=== PATIENT | male | born 1985 | race Two or more races ===

== ENCOUNTER 2024-12-03 19:22 | Emergency (ER) | payer BC, SELFPAY ==
[2024-12-03 19:23] VITALS: BMI 40.1
--- NOTE | 2024-12-03 20:12 | PD.EDRME ---
Rapid Medical Screening Exam RME Arrival date/time: 12/03/24 19:22 Chief Complaint: Shortness of Breath/Dyspnea Time Seen by Provider: 12/03/24 19:24 Vital signs: Vital Signs Temperature 98.7 F 12/03/24 20:54 Pulse Rate 101 H 12/03/24 20:54 Respiratory Rate 20 12/03/24 20:54 Blood Pressure 154/89 H 12/03/24 20:54 Pulse Oximetry (%) 95 12/03/24 20:54 Oxygen Delivery Method Room Air 12/03/24 20:54 E Narrative: Shortness of breath x 3 weeks. Denies recent fever or URI symptoms.
--- NOTE | 2024-12-03 20:13 | EKG_ITS ---
[facility] Test Date: 2024-12-03 Pat Name: CAROL CRUZ Department: Room: - Gender: Male Residential Service Technician: : 1985 Requested By: Lawrence Maya Order Number: [id number] Reading MD: Lawrence Maya Measurements Intervals [place] Rate: 71 P: 26 ID: [id number] QRS: -20 QRSD: 105 T: 31 QT: 384 QTc: 418 Interpretive Statements SINUS RHYTHM INCOMPLETE RIGHT BUNDLE BRANCH BLOCK [90+ ms QRS DURATION, TERMINAL R IN V1/V2, 40+ ms S IN I/aVL/V4/V5/V6] POSSIBLE SEPTAL MYOCARDIAL INFARCTION , PROBABLY OLD [30 ms Q WAVE IN V1/V2] No previous ECG available for comparison /[id number]/[email or web address]/[id number].pdf
--- NOTE | 2024-12-03 20:13 | XR_ITS ---
Examination: PA chest single view Technique: Upright PA chest single view Exam date and time: December 03, 2024 202 hrs. Comparison January 06, 2018 Indications: Intermittent chest pain 3 weeks. Findings: No significant cardiac enlargement Lobulation right hemidiaphragm Minimal opacity left base obscuring detail left hemidiaphragm Intact osseous structures Impression: Minimal parenchymal disease left base, obscuring detail left hemidiaphragm, consider mild left base pneumonia
[2024-12-03 20:54] VITALS: BP 154/89; PULSE 101; RESP 20; TEMP 37.1; O2SAT 95
[2024-12-03 20:57] LABS: Basophils # (Auto) 0.1 Thou/mm3 (0.0-0.2); Basophils % (Auto) 1 % (0-2.5); Eosinophils # (Auto) 0.1 Thou/mm3 (0.0-0.5); Eosinophils % (Auto) 1 % (0-10); Hematocrit 41.5 % (41.0-53.0); Immature Granulocytes % (Auto) 0 % (0-0); Immature Granulocytes Auto 0.01 Thou/mm3 (0.00-0.00); Lymphocytes # (Auto) 3.2 Thou/mm3 (1.0-4.8); Lymphocytes % (Auto) 37 % (10-50); Mean Corpuscular HGB Conc 33.7 g/dl (31.0-37.0); Mean Corpuscular Hemoglobin 29.4 pg (25.0-35.0); Mean Corpuscular Volume 87 fL (80-100); Monocytes # (Auto) 0.9 Thou/mm3 (0.0-0.8); Monocytes % (Auto) 11 % (0-12); Neutrophils # (Auto) 4.3 Thou/mm3 (1.8-7.7); Neutrophils % (Auto) 50 % (37-80); Nucleated Red Blood Cell % 0 /100 WBC (0); Platelet Count 252 Thou/mm3 (140-440); RDW Standard Deviation 39.8 fL (35.1-43.9); Red Blood Count 4.77 Miln/mm3 (4.50-5.90); White Blood Count 8.6 Thou/mm3 (3.8-10.6)
[2024-12-03 21:28] LABS: B-Type Natriuretic Peptide < 20 pg/mL (0-100)
[2024-12-03 21:29] LABS: Alanine Aminotransferase 31 U/L (10-49); Albumin, Serum 4.8 gm/dL (3.5-5.0); Albumin/Globulin Ratio 1.7 (1.2-2.2); Alkaline Phosphatase 69 U/L (46-116); Anion Gap 6 (7-16); Aspartate Amino Transferase 17 U/L (0-34); BUN/Creatinine Ratio 10 Ratio (12-20); Bilirubin,Total 0.5 mg/dL (0.3-1.2); Blood Urea Nitrogen 8 mg/dL (9-23); Calcium 9.5 mg/dL (8.3-10.6); Calcium (Corrected) 9.5 mg/dL (8.5-10.1); Carbon Dioxide 26.6 mMol/L (20.0-31.0); Chloride 106 mMol/L (98-107); Creatinine (Component) 0.8 mg/dL (0.6-1.3); Estimated Creatinine Clearance 164.2 mL/min (>60); Globulin 2.8 gm/dL (2.3-3.5); Glucose 99 mg/dL (74-106); Osmolality,Calculated 275 (275-295); Potassium 3.7 mMol/L (3.4-5.1); Sodium 139 mMol/L (136-145); Total Protein 7.6 gm/dL (5.7-8.2); Troponin I < 0.020 ng/mL (0.0-0.045); eGFR > 60 See Note
[2024-12-03 21:36] VITALS: BP 149/94; PULSE 67; RESP 18; TEMP 36.6; O2SAT 97
--- NOTE | 2024-12-03 22:02 | PD.EDSOB ---
ED SOB =RME/HPI General Chief Complaint: Shortness of Breath/Dyspnea Stated Complaint: SOB, frequent urination Time Seen by Provider: 12/03/24 19:24 Arrival date/time: 12/03/24 19:22 RME / HPI RME / HPI Narrative: Shortness of breath x 3 weeks. Denies recent fever or URI symptoms. ----- Dr. Narvaez?s Main ED Evaluation: 39yo male with a history of HTN, HLD presents to the ED for a chief complaint of intermittent shortness of breath x 3 weeks. Patient states his episodes occur twice a week, reporting they subside on their on, but states today the episode lasted for an hour, so he came in for evaluation. He reports associated chest pain and anxiety. He denies any abdominal pain, extremity pain, back pain, N/V, numbness, tingling, cough, runny nose, sneezing, coughing or any other associated symptoms. No known allergies. Related Data Home Medications ?Medication ?Instructions ?Recorded ?Confirmed losartan 50 mg-hydrochlorothiazide 1 tab PO QDAY 09/09/18 10/14/18 12.5 mg tablet Allergies Allergy/AdvReac Type Severity Reaction Status Date / Time No Known Allergies Allergy Verified 01/23/24 07:31 Review of Systems Review of Systems Systems Reviewed: All systems reviewed, normal except as documented Past Medical History Past Medical History CARDIAC: Positive Cardiac Disorders, Hypercholesterolemia and Hypertension; Negative Congestive Heart Failure RESPIRATORY: Negative Chronic Obstructive Pulmonary Disease (COPD) GASTROINTESTINAL: Positive Gastroesophageal Reflux Disease GENITOURINARY: Negative Renal Disease ENDOCRINE: Negative Diabetes Mellitus Type 1 or Diabetes Mellitus Type 2 Family History FAMILY HISTORY: Positive Family Cardiac Disorders Social History SMOKING STATUS: Never smoker ED Exam Narrative Physical exam: GENERAL APPEARANCE: alert and oriented x 4, well-developed, well-nourished, no acute distress VITALS: All vitals were reviewed and the pulse ox is 97% on room air, which is normal according to my interpretation. HEENT: Normocephalic, atraumatic; pupils equal, round, reactive to light; EOMI; mucous membranes pink, moist; oropharynx clear NECK: Supple LUNGS: CTABL; no wheezes, no rales, no rhonchi HEART: Regular rate, regular rhythm; normal S1, S2; no murmurs ABDOMEN: non distended; normal BS; soft, no tenderness, no guarding, no rebound; no masses, no organomegaly, no hernia BACK: no CVA tenderness EXTREMITIES: atraumatic; no edema NEUROLOGIC: awake; alert and oriented x4; cranial nerves II-XII grossly intact; no focal sensory or motor deficits PSYCHIATRIC: appropriate mood and affect SKIN: warm, dry, normal color; no rashes Course Course Course Narrative: CXR is ordered for determining the etiology of shortness of breath. Quality Measures none Orders Category Date Time Status EKG (ED ONLY) *Do not use* NOW Care 12/03/24 20:13 Completed CXR [XR chest 1V] Stat Exams 12/03/24 20:13 Completed EKG (ED Only) Stat Exams 12/03/24 20:13 Draft BNP [B-Type Natriuretic Peptide] Stat Lab 12/03/24 20:27 Completed CBC Stat Lab 12/03/24 20:27 Completed CMP [Comprehensive Metabolic Panel] Stat Lab 12/03/24 20:27 Completed Troponin I Stat Lab 12/03/24 20:27 Completed Vital Signs Vital signs: Vital Signs Temperature 98.7 F 12/03/24 20:54 Pulse Rate 101 H 12/03/24 20:54 Respiratory Rate 20 12/03/24 20:54 Blood Pressure 154/89 H 12/03/24 20:54 Pulse Oximetry (%) 95 12/03/24 20:54 Oxygen Delivery Method Room Air 12/03/24 20:54 Shortness of Breath / Dyspnea MDM Narrative MDM Narrative:: Scribe Attestation: 12/03/24 - Tonya Christensen am scribing for and in the presence of Dr. Narvaez. CXR read by the radiologist states the patient has a mild left base pneumonia, however, is inconsistent with the patient's history. CXR is normal, as interpreted by me below. Patient is stable to be discharged home. Patient data External records reviewed:: [facility] previous records (Per chart review, patient was seen here on 01/23/24 for paresthesia.) Clinical information provided by:: patient Social determinants that could affect healthcare access:: none Patient has the following chronic illnesses:: HTN, HLD How is presenting disease/condition affected by chronic disease/condition?: uneffected by Evaluation data The following diagnostics were reviewed and interpreted by me:: lab results, radiology exam(s) and EKG tracing(s) Lab and/or radiology exams considered but not ordered:: none Interpretation Summary: CBC is normal, CMP is normal, troponin is normal, BNP is normal, according to my interpretation. CXR shows normal cardiac silhouette, normal sharp diaphragmatic edge, no infiltrates, normal costophrenic angles, according to my interpretation. EKG done at 2020, NSR, rate of 71, left axis deviation, incomplete RBBB, no ectopy, no acute ischemia, according to my interpretation. Medications / Prescriptions Medications or Prescriptions considered but not ordered:: none Medication administrations:: none Consultations Consultation(s) initiated? (list below): No Diagnosis Shortness of Breath Differential Diagnosis: congestive heart failure and other (GERD, anxiety reaction, pneumonia, Influenza, viral URI, anemia) Most likely diagnosis given after review of the tests above:: see below Admission Indicated Admission indicated?: not indicated Admission Request Was there a request for admission?: No Disposition Plan Disposition Plan: Discharge Discharge Attestation Discharge Attestation: The patient and all family members were given an opportunity to ask questions and understood the discharge instructions. Discharge instructions specifically effects, indications for sooner follow up or return to the emergency department, and the expected course of current diagnosis. Patient condition: Stable Discharge Plan Plan Patient Disposition: HOME (Self Care) Disposition Comment: Stable for discharge Patient condition on transfer: Stable Prescriptions/Referrals Prescriptions/Med Rec: No Action losartan-hydrochlorothiazide 50-12.5 mg Tablet 1 tab PO QDAY Referrals: [facility] [Outside] - In 1 week Yanna Escobar GAS PLANT TECHNICIAN [Primary Care Provider] - In 1 week Problem List Clinical Impression: Dyspnea Patient/Caregiver Discharge Instructions Discharge Activity: activity as tolerated Education Materials: ED Shortness of Breath (Dyspnea) Additional Instructions: Please return to the emergency department if not improving within the next 48 hours or if you are worsening in any way and we will help you Otherwise you should follow-up with [facility] within the next several days. All of your tests today were normal including your chest x-ray and your blood work. The cause of your shortness of breath remains unclear but be sure to follow-up with [facility] and to return if you worsen Print Language: Swazi Stand Alone Forms: [facility] Award Info., Patient Portal Info Letter
== END 2024-12-03 22:37 | disposition home or self-care (01) ==
PROVIDERS: Physician Assistant; Emergency Provider Emergency Medicine; PCP Nurse Practitioner Family
DX: R06.00 Dyspnea, unspecified (principal); I45.10 Unspecified right bundle-branch block; I10 Essential (primary) hypertension; E78.00 Pure hypercholesterolemia, unspecified
CPT/HCPCS: 36415; 71045; 80053; 83880; 84484; 85025; 93005; 99283

== ENCOUNTER 2025-10-02 14:11 | Emergency (ER) | payer MEDICAID, SELFPAY ==
[2025-10-02 14:12] VITALS: BMI 39.0
--- NOTE | 2025-10-02 15:16 | XR_ITS ---
Examination: CT brain head without contrast. 2-D sagittal coronal reconstructions Date and time of exam: 10/02/2025 at 3:41 p.m. INDICATION: Generalized headaches. COMPARISON: None CTDI: vol (mGy): 60.2 DLP: (mGycm): 1249 Technique: Multiple CT axial sections of the brain have been obtained, 5 mm slice thickness. Contrast has not been administered. 2-D sagittal, coronal reconstructions have been obtained Low dose protocols were performed. One or more of the following dose reduction techniques were used; automated exposure control, adjustment of the mA and/or KV according to patient size, use of iterative reconstruction technique. FINDINGS: BRAIN PARENCHYMA: The brain parenchyma appears normal for age. Wisdom-white matter junctions are intact; no evidence for acute transcortical ischemic infarction. No intraparenchymal hemorrhage, discrete mass or midline shift. No cerebellar tonsillar ectopia. No apparent acute abnormality of the cerebellum. VENTRICLES / EXTRA-AXIAL SPACES: No hydrocephalus, extra-axial hematoma or mass. CALVARIUM: No skull fracture or concerning focal lesion. Hyperostosis frontalis and parietalis interna noted. SINUSES: No fluid levels or complete opacification. Small lobulated focus of mucosal hypertrophy or mucous retention cyst noted in the anterolateral right sphenoid sinus. Very small mucous retention type cyst noted in the anterior wall the right maxillary sinus. Trace mucosal hypertrophy noted in the frontal recesses, greater on the right. The visualized mastoid air cells are clear. OTHER EXTRACRANIAL STRUCTURES: No findings of acute significance. IMPRESSION: Negative noncontrast head CT for acute intracranial abnormality. No specific intracranial findings detected to explain for cephalgia.
--- NOTE | 2025-10-02 15:17 | PD.EDRME ---
Rapid Medical Screening Exam RME Arrival date/time: 10/02/25 14:11 40-year-old male with a history of hypertension presents to the emergency room with a chief complaint of a headache, nausea, weakness x 2 months. I have greeted and performed a focused initial assessment of this patient. A comprehensive ED assessment and evaluation of the patient, analysis of all test results, and completion of the medical decision making process will be conducted by additional ED providers. Chief Complaint: General Adult/Misc Complain Time Seen by Provider: 10/02/25 14:45 Vital signs reviewed by provider: Yes Exam: GCS of 15, alert and oriented x 3, pupils are PERRLA, EOMs are intact, patient has a normal steady gait Clear bilateral lung sounds strong and regular rhythm S1 and S2 noted Clinical Impression: Weakness/migraine/headaches/hypothyroidism
[2025-10-02 15:27] VITALS: BP 124/81; PULSE 67; RESP 18; TEMP 37.1; O2SAT 99
--- NOTE | 2025-10-02 15:42 | PC.NURSE ---
CALLED FROM LOBBY FOR MEDICATION AND NO ANSWER
[2025-10-02] MEDS: ONDANSETRON ODT 4 MG TABRAP PO (15:53)
[2025-10-02 15:59] LABS: Basophils # (Auto) 0.1 Thou/mm3 (0.0-0.2); Basophils % (Auto) 1 % (0-2.5); Eosinophils # (Auto) 0.1 Thou/mm3 (0.0-0.5); Eosinophils % (Auto) 1 % (0-10); Hematocrit 46.9 % (41.0-53.0); Hemoglobin 15.7 g/dL (13.5-16.0); Immature Granulocytes Auto 0.02 Thou/mm3 (0.00-0.00); Lymphocytes # (Auto) 2.4 Thou/mm3 (1.0-4.8); Lymphocytes % (Auto) 32 % (10-50); Mean Corpuscular HGB Conc 33.5 g/dl (31.0-37.0); Mean Corpuscular Hemoglobin 30.2 pg (25.0-35.0); Mean Corpuscular Volume 90 fL (80-100); Monocytes # (Auto) 0.7 Thou/mm3 (0.0-0.8); Monocytes % (Auto) 9 % (0-12); Neutrophils # (Auto) 4.2 Thou/mm3 (1.8-7.7); Neutrophils % (Auto) 57 % (37-80); Nucleated Red Blood Cell # 0.00 Thou/mm3 (0.00-0.00); Nucleated Red Blood Cell % 0 /100 WBC (0); Platelet Count 272 Thou/mm3 (140-440); RDW Standard Deviation 40.5 fL (35.1-43.9); Red Blood Count 5.20 Miln/mm3 (4.50-5.90); White Blood Count 7.3 Thou/mm3 (3.8-10.6)
[2025-10-02 16:01] LABS: B-Type Natriuretic Peptide < 20 pg/mL (0-100)
[2025-10-02 16:06] LABS: Alanine Aminotransferase 27 U/L (10-49); Albumin, Serum 5.2 gm/dL (3.5-5.0); Albumin/Globulin Ratio 2.5 (1.2-2.2); Alkaline Phosphatase 59 U/L (46-116); Anion Gap 9 (7-16); Aspartate Amino Transferase 21 U/L (0-34); BUN/Creatinine Ratio 8 Ratio (12-20); Bilirubin,Total 1.1 mg/dL (0.3-1.2); Blood Urea Nitrogen 7 mg/dL (9-23); Calcium 9.5 mg/dL (8.3-10.6); Calcium (Corrected) 9.5 mg/dL (8.5-10.1); Carbon Dioxide 27.1 mMol/L (20.0-31.0); Chloride 107 mMol/L (98-107); Creatinine (Component) 0.9 mg/dL (0.6-1.3); Estimated Creatinine Clearance 146.6 mL/min (>60); Free T4 (Free Thyroxine) 1.33 ng/dL (0.89-1.76); Globulin 2.1 gm/dL (2.3-3.5); Glucose 98 mg/dL (74-106); LDH (Lactate Dehydrogenase) 169 U/L (120-246); Magnesium 2.2 mg/dL (1.6-2.6); Osmolality,Calculated 282 (275-295); Potassium 4.0 mMol/L (3.4-5.1); Sodium 143 mMol/L (136-145); Thyroid Stimulating Hormone 0.89 uIU/mL (0.55-4.78); Total Protein 7.3 gm/dL (5.7-8.2); Troponin I < 0.002 ng/mL (0.0-0.045); eGFR > 60 See Note
[2025-10-02 16:08] LABS: INR 1.0 (0.9-1.3); Partial Thromboplastin Time 28.9 Seconds (22.0-36.0); Prothrombin Time 11.1 Seconds (9.0-12.2)
[2025-10-02 16:30] VITALS: BP 131/86; PULSE 63; RESP 20; TEMP 36.8; O2SAT 98
[2025-10-02 16:41] LABS: Collection Type, Urine Clean Catch
--- NOTE | 2025-10-02 16:50 | PD.EDADULT ---
ED General RME/HPI General Chief complaint: General Adult/Misc Complain Stated complaint: WEAKNESS, HEADACHE AND DIZZINESS, SWEATING Time Seen by Provider: 10/02/25 14:45 Arrival date/time: 10/02/25 14:11 40-year-old male patient with significant history of hypertension, came in for evaluation regarding headache. Has been having headache for 2 months, it comes and goes, described as dull ache, severity moderate. Denies any head trauma denies any fever denies any upper or lower extremity weakness denies any slurred speech patient is ambulatory. Patient also denies any neck pain chest pain or abdominal pain. No medication was taken prior to ER visit. RME / HPI RME / HPI narrative: 10/02/25 14:11 40-year-old male with a history of hypertension presents to the emergency room with a chief complaint of a headache, nausea, weakness x 2 months. I have greeted and performed a focused initial assessment of this patient. A comprehensive ED assessment and evaluation of the patient, analysis of all test results, and completion of the medical decision making process will be conducted by additional ED providers. Exam: GCS of 15, alert and oriented x 3, pupils are PERRLA, EOMs are intact, patient has a normal steady gait Clear bilateral lung sounds strong and regular rhythm S1 and S2 noted Impression: Weakness/migraine/headaches/hypothyroidism Related Data Home Medications ?Medication ?Instructions ?Recorded ?Confirmed losartan 50 mg-hydrochlorothiazide 1 tab PO QDAY 09/09/18 10/14/18 12.5 mg tablet Previous Rx's ?Medication ?Instructions ?Recorded rizatriptan 10 mg tablet (Maxalt) 10 mg PO Q2H PRN migraine headache 10/02/25 #30 tabs Allergies Allergy/AdvReac Type Severity Reaction Status Date / Time No Known Allergies Allergy Verified 10/02/25 14:14 Review of Systems Review of Systems Narrative Review of Systems: Review of system reviewed and within normal limits except mentioned in HPI ED Exam Narrative Physical exam: VITAL SIGNS: Reviewed. GENERAL APPEARANCE: Alert and interactive, follows commands, no acute distress, HEAD AND FACE: Non-traumatic. ENT: PERRL, pink conjunctivitis, eyelid no trauma, Mucous membrane moist. NECK: Supple, nontender, no nuchal rigidity. CHEST: No tenderness, no crepitus, no paradoxical movement, no retractions. LUNGS: Clear, well ventilated, symmetric, no rales, no wheezing, no ronchi, no stridor, good breath sounds bilaterally. HEART: Regular rate, regular rhythm, no murmur, no gallops. ABDOMEN: Soft, positive bowel sounds, nondistended, no guarding, nontender, no rebound, no masses, RECTAL: Deferred. GENITAL: Deferred. NEUROLOGICAL: Gross motor function intact sensory function intact, Appropriate for age. MUSCULOSKELETAL: low back nontender, full range of motion. EXTREMITIES: Nontender, full range of motion. SKIN: Color pink, dry, no rash, no lacerations, no abrasions, no contusions. LYMPHATICS: Deferred. Course Quality Measures none Orders Category Date Time Status CT head/brain wo con Stat Exams 10/02/25 15:16 Completed B-Type Natriuretic Peptide Stat Lab 10/02/25 15:36 Completed CBC Stat Lab 10/02/25 15:36 Completed Comprehensive Metabolic Panel Stat Lab 10/02/25 15:36 Completed Drug Screen,Urine Stat Lab 10/02/25 16:36 Received Free T4 (Free Thyroxine) Stat Lab 10/02/25 15:36 Completed LDH (Lactate Dehydrogenase) Stat Lab 10/02/25 15:36 Completed Magnesium Stat Lab 10/02/25 15:36 Completed Partial Thromboplastin Time Stat Lab 10/02/25 15:36 Completed Prothrombin Time with INR Stat Lab 10/02/25 15:36 Completed TSH [Thyroid Stimulating Hormone] Stat Lab 10/02/25 15:36 Completed Troponin I Stat Lab 10/02/25 15:36 Completed Urinalysis, C/S if Indicated Stat Lab 10/02/25 16:36 Received Ondansetron Odt [Zofran Odt] Med 10/02/25 15:17 Discontinued 4 mg PO X1 ONE Vital Signs Vital signs: Vital Signs Temperature 98.7 F 10/02/25 15:27 Pulse Rate 67 10/02/25 15:27 Respiratory Rate 18 10/02/25 15:27 Blood Pressure 124/81 10/02/25 15:27 Pulse Oximetry (%) 99 10/02/25 15:27 Oxygen Delivery Method Room Air 10/02/25 15:27 Discharge Plan Plan Patient Disposition: HOME (Self Care) Discharge Disposition comment: stable Prescriptions/Referrals Prescriptions/Med Rec: New rizatriptan [Maxalt] 10 mg tablet 10 mg PO Q2H PRN (Reason: migraine headache) Qty: 30 0RF Rx Instructions: do not exceed 3 doses per 24 hrs No Action losartan-hydrochlorothiazide 50-12.5 mg Tablet 1 tab PO QDAY Referrals: Yanna Escobar, RESEARCH SOIL SCIENTIST [Primary Care Provider] - In 1 week Problem List Clinical Impression: Headache Patient/Caregiver Discharge Instructions Discharge Activity: activity as tolerated Education Materials: Self-Care for Headaches Additional Instructions: Thank you for the opportunity for serving you today. You are stable for discharged . You are advised to: Follow-up with your PCP in 1 to 2 days Return to ED for worsening of symptoms Increase oral fluids Take medication as prescribed Print Language: Sami Stand Alone Forms: [employer] Award Info., Patient Portal Info Letter MDM Narrative MDM hospital course (for use when minimal MDM required): 40-year-old male patient with significant history of hypertension, came in for evaluation regarding headache. Has been having headache for 2 months, it comes and goes, described as dull ache, severity moderate. Denies any head trauma denies any fever denies any upper or lower extremity weakness denies any slurred speech patient is ambulatory. Patient also denies any neck pain chest pain or abdominal pain. No medication was taken prior to ER visit. Patient's workup today came back normal including CT scan of the head. Results discussed with the patient. Stable for discharge home. Further imaging is not needed at this time. Differential diagnosis includes headache migraine headache intracranial bleed Diagnosis definitive based on workup and imaging is possibly migraine headache Medication Administration(s) Medication Administration History Discontinued Medications Ondansetron HCl (Ondansetron Odt 4 Mg Tabrap) 4 mg PO X1 ONE; Protocol Stop: 10/02/25 15:18 Last Admin: 10/02/25 15:53 Dose: 4 mg Documented By: [facility]
[2025-10-02 16:51] LABS: Amphetamine/Methamp Scrn,U Negative (Negative); Barbiturate Screen,Urine Negative (Negative); Benzodiazepines Screen,Urine Negative (Negative); Benzoylecgonine Screen, Ur Negative (Negative); Bilirubin,Urine Negative (Negative); Blood,Urine Negative (Negative); Clarity,Urine Clear (Clear/Hazy); Color,Urine Lt-Yellow (Lt Yel-Yel); Culture Indicated,Urine Not Indicated; Fentanyl Screen,Urine Negative (Negative); Glucose, Urine 4+ (Negative); Ketones,Urine Negative (Negative); Leukocyte Esterase,Urine Negative (Negative); Nitrite,Urine Negative (Negative); Opiate Screen,Urine Negative (Negative); PH,Urine 7.5 (5.0-7.0); Protein,Urine Negative (Neg - Trace); RBC,Urine 2 /hpf (0-3); Specific Gravity,Urine 1.018 (1.001-1.035); Squamous Epithelial Cell,Urine < 1 /hpf (0-5); THC Screen,Urine Negative (Negative); Urobilinogen,Urine Negative mg/dL (0.0-1.0); WBC,Urine < 1 /hpf (0-5)
== END 2025-10-02 17:39 | disposition home or self-care (01) ==
PROVIDERS: Nurse Practitioner Family; PCP Nurse Practitioner Family
DX: R51.9 Headache, unspecified (principal); I10 Essential (primary) hypertension
CPT/HCPCS: 36415; 70450; 80053; 80307; 81001; 83615; 83735; 83880; 84439; 84443; 84484; 85025; 85610; 85730; 99283; Q0162